=== PATIENT | male | born 1985 | race Hispanic/Latino ===

== ENCOUNTER 2022-10-04 18:45 | Emergency (ER) | payer SELFPAY ==
[2022-10-04 19:15] VITALS: BP 136/91
[2022-10-04 19:30] VITALS: BP 129/86
[2022-10-04 19:58] LABS: HEMOGLOBIN 14.5 g/dl (14.0-18.0); IMMATURE GRANULOCYTES 0.1 % (0.0-5.0); MEAN CELL VOLUME 81.9 fL CALC (80.0-100.0); MEAN CORPUSCULAR HGB 28.3 pG CALC (26.0-32.0); MEAN CORPUSCULAR HGB CONC 34.5 g/dL CAL (32.0-36.0); NEUT# 5.36 thou/uL (1.82-7.42); RED BLOOD COUNT 5.13 mill/uL (4.70-6.10); RED CELL DISTRI WIDTH 15.2 % (11.5-15.5)
[2022-10-04 20:13] LABS: ALBUMIN 4.3 g/dL (3.2-5.0); ALKALINE PHOSPHATASE 103 u/l (38-126); ANION GAP 11 (6-22 (CALC)); BILIRUBIN, TOTAL 0.5 mg/dL (0.0-1.4); BUN 16 mg/dL (9-20); BUN/CREATININE RATIO 20 (12-20 (CALC)); CARBON DIOXIDE 26 mmol/l (22-30); CHLORIDE 108 mmol/l (95-108); CREATININE 0.8 mg/dL (0.7-1.3); GFR FOR AFR.AMER. > 60 ML/MIN (>=60 (CALC)); GFR OTHER RACES > 60 ML/MIN (>=60 (CALC)); POTASSIUM 3.7 mmol/l (3.5-5.1); SGOT/AST 41 u/l (17-59); SODIUM 142 mmol/l (137-146)
[2022-10-04 20:37] LABS: URINE BILIRUBIN - DIPSTICK NEGATIVE (NEGATIVE); URINE BLOOD DIPSTICK NEGATIVE (NEGATIVE); URINE COLOR YELLOW; URINE GLUCOSE - DIPSTICK NEGATIVE (NEGATIVE); URINE KETONE NEGATIVE (NEGATIVE); URINE LEUK ESTERASE NEGATIVE (NEGATIVE); URINE NITRITE - DIPSTICK NEGATIVE (Negative); URINE PROTEIN - DIPSTICK NEGATIVE (NEG-TRACE); URINE SPECIFIC GRAVITY 1.025
[2022-10-04 21:36] VITALS: BP 104/71
[2022-10-04] MEDS ORDERED: CYCLOBENZAPRINE10 MG PO (21:55)
[2022-10-04] MEDS ORDERED: CIPROFLOXACN500 MG PO (21:55)
[2022-10-04] MEDS ORDERED: NAPROXEN500 MG PO (21:55)
[2022-10-04 22:00] VITALS: BP 128/73
[2022-10-04 22:15] VITALS: BP 128/73
== END 2022-10-04 22:25 | disposition home or self-care (01) | DRG 552 ==
LOC: ED 18:45
PROVIDERS: Emergency Medicine
DX: M54.50 Low back pain, unspecified (principal)
CPT/HCPCS: Q9967

== ENCOUNTER 2023-04-20 11:31 | Observation (INO) | payer OTHER ==
[~2023-04-20] VITALS: Ht 177.8 cm; Wt 86.2 kg
[~2023-04-20 11:31] MED LIST: CIPROFLOXACN500 MG PO; CYCLOBENZAPRINE10 MG PO; NAPROXEN500 MG PO
[2023-04-20] MEDS ORDERED: SUBOXONE1 MI1 SL ×2 (11:54→18:55)
--- NOTE | 2023-04-20 11:55 | NUR ---
PT AMBULATED TO ROOM 1 W/O DIFFICULTY, CALL LIGHT IN REACH, PROVIDER NOTIFIED.
--- NOTE | 2023-04-20 12:30 | NUR ---
PT SITTING UN IN BED C/O LT MIDDLE FINGER SWOLLEN, UNSURE OF WHAT CAUSED IT, PAIN 5/10; ABLE TO MOVE FINGER BUT CANNOT BEND IT; ORIENT TO ROOM AND CALL HUIZAR.
[2023-04-20 12:41] LABS: BASO% 0.3 % (0-3); HEMATOCRIT 43.6 % (39.0-50.0); IMMATURE GRANULOCYTES 0.1 % (0.0-5.0); LYMPH% 14.8 % (15-41); MEAN CELL VOLUME 85.3 fL CALC (80.0-100.0); MEAN CORPUSCULAR HGB 29.4 pG CALC (26.0-32.0); MEAN CORPUSCULAR HGB CONC 34.4 g/dL CAL (32.0-36.0); MONO% 8.2 % (2-13); NEUT# 10.18 thou/uL (1.82-7.42); NEUT% 75.6 % (42-76); RED BLOOD COUNT 5.11 mill/uL (4.70-6.10); RED CELL DISTRI WIDTH 12.5 % (11.5-15.5)
[2023-04-20 12:57] LABS: ALBUMIN 4.5 g/dL (3.2-5.0); ALKALINE PHOSPHATASE 137 u/l (38-126); ANION GAP 16 (6-22 (CALC)); BILIRUBIN, TOTAL 0.8 mg/dL (0.2-1.3); BUN 17 mg/dL (9-20); BUN/CREATININE RATIO 21 (12-20 (CALC)); CARBON DIOXIDE 27 mmol/l (22-30); CHLORIDE 102 mmol/l (95-108); CREATININE 0.8 mg/dL (0.7-1.3); GFR FOR AFR.AMER. > 60 ML/MIN (>=60 (CALC)); GFR OTHER RACES > 60 ML/MIN (>=60 (CALC)); POTASSIUM 3.6 mmol/l (3.5-5.1); SGOT/AST 44 u/l (17-59); SODIUM 141 mmol/l (137-146); TOTAL PROTEIN 8.2 g/dL (6.3-8.2)
--- NOTE | 2023-04-20 13:19 | NUR ---
REASSESSMENT OF PT, REQ SOME CRACKERS WHICH WAS GIVEN.
--- NOTE | 2023-04-20 13:45 | NUR ---
MEDICATED PER EMAR.
--- NOTE | 2023-04-20 15:00 | NUR ---
REASSESSMENT OF PT, DENIES ANY NEEDS AT THIS TIME.
--- NOTE | 2023-04-20 16:20 | NUR ---
MEDICATED PER EMAR, C/O OF PAIN 06/03, PROVIDER AWARE.
--- NOTE | 2023-04-20 16:31 | NUR ---
PT SITTING UP IN BED USING HIS PHONE; MEDICATED FOR PAIN; PT EDUCATED ON NPO; CALL HUIZAR IN REACH.
--- NOTE | 2023-04-20 17:36 | NUR ---
PT VOIDED CLEAR TEDDY URINE IN URINAL.
--- NOTE | 2023-04-20 18:58 | NUR ---
@1730 B/P 129/87, HR 68 02 999% @1800 B/P 134/78, HR 67 02 99% @1700 B/P 150/74, HR 81, 02 99% RESP 18
--- NOTE | 2023-04-20 19:19 | NUR ---
@1800 B/P134/78 HR 67, 02 99% RESP 18 @1900 B/P150/74 HR 81 02 99% RESP 18
--- NOTE | 2023-04-20 19:25 | NUR ---
REPORT GIVEN TO EARL/FILEMON
--- NOTE | 2023-04-20 19:35 | NUR ---
PT TAKEN TO [facility] VIA W/C IN STABLE CONDITION, ALL BELONGINGS SENT WITH PT.
[2023-04-20 19:40] VITALS: BP 135/78
[2023-04-21] VITALS (7 sets, daily range): BP systolic 114–137; BP diastolic 70–91
--- NOTE | 2023-04-21 07:26 | NUR ---
PATIENT IS ADMITTED TO THIS FLOOR DUE TO ABCESS TO LEFT MIDDLE FINGER, FINGER IS SWOLLEN, WITH PURULENT DRAINAGE. PICTURE WAS TAKEN OF WOUND BUT WAS UNABLE TO PRINT. PATIENT IS ALERT AND ORIENTED X3. MEDICATED WITH TORADOL 2X THIS SHIFT. PATIENT HAS HISTORY OF OSTEOMYLITIS OF BONE. PATIENT IS AN IV DRUG USER, TESTED POSITIVE FOR METH, COCAINE AND THC, HAS VISIBLE TRACK JENKINS TO HAND. PATIENT STATED THAT HE HAS BEEN CLEAN FROM HEROINE SINCE [id number]. PATIENT IS CURRENTLY RESTING IN BED WITH EYES CLOSED, CALL LIGHT WITHIN REACH, WILL CONTINUE TO MONITOR.
--- NOTE | 2023-04-21 08:00 | NUR ---
PT IN BED WITH HOB UP, ALERT AND OREINTED X 3. PT C/O PAIN IN LEFT, MIDDLE FINGER, WILL MEDICATE WITH PRN MEDICATION ORDERED. PT HAS TELE ON WITH ALL LEADS ATTACHED. IV SITE TO LAC CLEAN AND INTACT. PT AMBULATES WELL TO BATHROOM FOR TOILETING. LEFT, MIDDLE FINGER RED AND SWOLLEN. PT HAS CALL LIGHT WITHIN REACH AND ALL SAFETY MEASURES IN PLACE AT THIS TIME.
--- NOTE | 2023-04-21 11:50 | NUR ---
S: COREEN MATIAS JR is a 37 M who presents with Sepsis and Cellulits. He has a history of low back pain and osteomyelitis of the bone. All medications in patient's chart were reviewed. O: VS: BP 114/72mmHg, P 59bpm, RR 16bpm,T 97.7F W 86.2kg, HT 70inches, Scr= 0.8mg/dL,CrCl= 154.1ml/min A: Blood culture is pending. Preliminary wound culture shows gram positive cocci. P: Patient is on Zosyn 3.375g IV Q6H. Vancomycin ordered for pharmacy to dose. Start Vancomycin 1g IV Q8H. Vancomycin trough is drawn before the 4th dose on 04/22 @ 0930. Vancomycin goal trough is between 15-20 mcg/ml. Pharmacy will follow and or advise on antibiotics use as needed.
--- NOTE | 2023-04-21 12:00 | NUR ---
PT IN BED WITH HOB EATING LUNCH. PT IS ALERT AND ORIENTED X3. NO CHANGE IN STATUS AT THIS TIME. PT HAS HAS CALL LIGHT WITHIN REACH.
--- NOTE | 2023-04-21 16:49 | NUR ---
PT C/O PAIN @ 9/10 IN INFECTED FINGER, TORADOL GIVEN. FINGER IS DRAINING MODERATE AMOUNT OF SEROSANG FLUID. 4X4 LOOSELY LAID ON FINGER TO CATCH ANY FURTHER DRAINAGE. WARM COMPRESS APPLED FOR COMFORT. WILL CONTINUE TO MONITOR. PT HAS CALL LIGHT WITHIN REACH.
--- NOTE | 2023-04-21 20:00 | NUR ---
RECEIVED REPORT FROM NURSE JIMI, PATIENT ALERT ORIENTED X 4 ABLE TO MAKE NEEDS KNONW, SALINE LOCK NOTED ON LAC PATENT FLUSHES WELL ASSESSMENT COMPLETED, PATIENT STATED HISTORY OF MRSA COUPLE OF MONTH AGO WOUND ON RT FINGER, MRSA SURVEILLANCE ORDERED PER HOSPITAL PROTOCOL, PATIENT NOT IN DISTRESS, DENIES PAIN AT THIS TIME, PATIENT EDUCATED NPO AFTER MIDNIGHT, EDEMA AND SCANT AMOUNT OF DRAINAGE NOTED ON LEFT MIDDLE FINGER, CALL LIGHT IN REACH.
[2023-04-22] VITALS (14 sets, daily range): BP systolic 112–153; BP diastolic 50–85
--- NOTE | 2023-04-22 | NUR ---
FOOD AND FLUIDS REMOVED FROM BEDSIDE, REINFORCED ON NPO STATUS, PATIENT VERBALIZED UNDERSTANDING, CALL LIGHT IN REACH.
--- NOTE | 2023-04-22 03:55 | NUR ---
PATIENT RESTING IN BED, EYES CLOSED, BREATHING EVEN UNLABORED ONGOING VANCO AT THIS TIME, CALL LIGHT IN REACH, PATIENT MAINTAINED NPO.
[2023-04-22 05:32] LABS: HEMATOCRIT 40.2 % (39.0-50.0); HEMOGLOBIN 13.6 g/dl (14.0-18.0); MEAN CELL VOLUME 86.6 fL CALC (80.0-100.0); MEAN CORPUSCULAR HGB 29.3 pG CALC (26.0-32.0); MEAN CORPUSCULAR HGB CONC 33.8 g/dL CAL (32.0-36.0); RED BLOOD COUNT 4.64 mill/uL (4.70-6.10); RED CELL DISTRI WIDTH 12.7 % (11.5-15.5)
[2023-04-22 05:59] LABS: ALBUMIN 3.6 g/dL (3.2-5.0); ALKALINE PHOSPHATASE 131 u/l (38-126); ANION GAP 14 (6-22 (CALC)); BILIRUBIN, TOTAL 0.5 mg/dL (0.2-1.3); BUN 13 mg/dL (9-20); BUN/CREATININE RATIO 18 (12-20 (CALC)); CARBON DIOXIDE 24 mmol/l (22-30); CHLORIDE 107 mmol/l (95-108); CREATININE 0.7 mg/dL (0.7-1.3); GFR FOR AFR.AMER. > 60 ML/MIN (>=60 (CALC)); GFR OTHER RACES > 60 ML/MIN (>=60 (CALC)); POTASSIUM 4.2 mmol/l (3.5-5.1); SGOT/AST 32 u/l (17-59); SODIUM 140 mmol/l (137-146); TOTAL PROTEIN 6.9 g/dL (6.3-8.2)
--- NOTE | 2023-04-22 07:00 | NUR ---
RECIEVED BEDSIDE REPORT, PATIENT APPEARS SLEEPING, NO S/S OF DISTRESS, PATIENT NPO SINCE MIDNIGHT FOR POSSIBLE I&D TODAY. PATIENT SAFETY MEASURES IN PLACE.
--- NOTE | 2023-04-22 11:11 | NUR ---
S: COREEN MATIAS JR is a 37 M who presents with cellulitis. All medications in patient's chart were reviewed. O: VS: BP 135/85, P 54 bpm, RR 20 bpm,T 98.4 F W 86.2kg, HT 70inches, Scr=0.7 ,CrCl= 176.2 ml/min A: Blood culture is pending. Wound culture of right middle finger shows MRSA growth with vancomycin susceptibility. P: Vancomycin ordered for pharmacy to dose. Continue Vancomycin 1g IV Q8H. Vancomycin trough to be drawn again on 04/23 @ 0930. Vancomycin trough drawn on 04/22 @ 0947: 10 ug/mL Vancomycin goal trough is between 10-15 mcg/ml. Pharmacy will follow and or advise on antibiotics use as needed.
--- NOTE | 2023-04-22 12:00 | NUR ---
PATIENT PREPED FOR PROCEDURE, CONSENT SIGNED, NO S/S OF DISTRESS, EKG DONE, SINUS CHUY. PATIENT SAFETY MEASURES IN PLACE.
--- NOTE | 2023-04-22 12:34 | NUR ---
PATIENT WENT TO OR FOR I&D. LEFT FLOOR IN STABLE CONDITION.
--- NOTE | 2023-04-22 14:43 | NUR ---
PATIENT ARRIVED BACK TO THE UNIT IN STABLE CONDITION, LEFT HAND WRAPPED , DRESSING ORDERS RECIEVED, PATIENT REFUSED PERCOCET, ORDER RECIEVED FOR TORADOL, PATIENT SAFTEY MEASURES IN PLACE.
--- NOTE | 2023-04-22 20:00 | NUR ---
RECEIVED REPORT FROM NURSE DOMINIC, PATIENT RESTING IN BED, WATCHING TV, S/P I&d TODAY DRESSING ON LEFT HAND CDI, IV ON LEFT ARM PATENT CURRENTLY VANCO INFUSING, ON TELEMETRY, PATINT ORDER FOR DRESSING CHANGED TO START TONIGHT, WILL PREMEDICATE PRIOR, CALL LIGHT IN REACH.
--- NOTE | 2023-04-22 21:00 | NUR ---
PATIENT PREMEDICATED WITH IV DILAUDID, DRESSING REMOVED SOAKED WITH SALINE, PATIENT MEDICATED AGAIN WITH PRN PERCOCET, UNABLE TO TOLERATE PAIN FROM REMOVAL OF PACKING PERCOCET GIVEN.APACKING SOAKED NORMAL SALINE WELL, PATIENT REFUSED, TO PACKED WOUND AT THIS TIME, WILL DO IT TOMORROW DRESSING CHANGED, SLIGHT PACKING DONE, AND WET TO DRY. COVERED WITH KERLIX AND WRAP WITH CORY, HAND ELEVATED. .
--- NOTE | 2023-04-23 00:14 | NUR ---
DUE TORADOL GIVEN AT THIS TIME, NOT IN DISTRESS, DRESSING CDI.
[2023-04-23 00:27] VITALS: BP 116/61
[2023-04-23 03:56] VITALS: BP 108/54
[2023-04-23 04:30] VITALS: BP 108/54
--- NOTE | 2023-04-23 04:38 | NUR ---
PATIENT RESTING IN BED, REMAINS ON ISOLATION FOR MRSA ON THE WOUND, NOT IN DISTRESS, CALL LIGHT IN REACH.
[2023-04-23 05:10] LABS: BASO% 0.5 % (0-3); EOS% 4.1 % (0-8); HEMATOCRIT 41.3 % (39.0-50.0); HEMOGLOBIN 13.8 g/dl (14.0-18.0); LYMPH% 36.6 % (15-41); MEAN CELL VOLUME 86.9 fL CALC (80.0-100.0); MEAN CORPUSCULAR HGB 29.1 pG CALC (26.0-32.0); MEAN CORPUSCULAR HGB CONC 33.4 g/dL CAL (32.0-36.0); MONO% 11.7 % (2-13); NEUT# 3.79 thou/uL (1.82-7.42); NEUT% 47.1 % (42-76); RED BLOOD COUNT 4.75 mill/uL (4.70-6.10); RED CELL DISTRI WIDTH 12.6 % (11.5-15.5)
[2023-04-23 05:35] LABS: ANION GAP 11 (6-22 (CALC)); BUN 17 mg/dL (9-20); BUN/CREATININE RATIO 21 (12-20 (CALC)); CARBON DIOXIDE 27 mmol/l (22-30); CHLORIDE 107 mmol/l (95-108); CREATININE 0.8 mg/dL (0.7-1.3); GFR FOR AFR.AMER. > 60 ML/MIN (>=60 (CALC)); GFR OTHER RACES > 60 ML/MIN (>=60 (CALC)); MAGNESIUM 2.1 mg/dL (1.6-2.3); POTASSIUM 4.4 mmol/l (3.5-5.1); SODIUM 141 mmol/l (137-146)
--- NOTE | 2023-04-23 05:37 | NUR ---
temp repeated, fan is facing patient face. recorded 97.5.
[2023-04-23 07:53] VITALS: BP 117/72
--- NOTE | 2023-04-23 08:00 | NUR ---
PT IN BED WITH HOB, ALERT AND ORIENTED X3; PT HAS MILD PAIN AT THIS TIME AT 2/10 ON PAIN SCALE.IV SITE #20 TO LFA CLEAN AND INTACT, SL. TELE IN WITH ALL LEADS ATTACHED. DRESSING TO LEFT MIDDLED FINGER CLEAN AND INTACT. PT HAS URINAL AT BEDSIDE FOR TOILETING NEEDS. PT HAS CALL LIGHT WIHTIN REACH AND ALL SAFETY MEASURES IN PLACE AT THIS TIME.
[2023-04-23] MEDS ORDERED: DOXYCYCLINE100 MG PO (10:35)
[2023-04-23 11:47] VITALS: BP 113/59
--- NOTE | 2023-04-23 12:00 | NUR ---
PT IN BED EATING BREAKFAST, ALERT ORIENTED X3. PT HAS NO CHANGE IN STATUS AT THIS TIME. DRESSING TO LEFT, MIDDLE FINGER CLEAN AND DRY. PT HAS CALL LIGHT WITHIN REACH AND ALL SAFETY MEASURES IN PLACE.
--- NOTE | 2023-04-23 13:42 | NUR ---
Discharge instructions given. Patient verbalizes understanding of same. Discharged in stable condition via Wheelchair to Home with volunteer. All belongings sent with pt.
== END 2023-04-23 13:42 | disposition home or self-care (01) | DRG 603 ==
LOC: ED 11:31 → ED-I 15:53 → ED 17:47 → MS2 17:48
PROVIDERS: Internal Medicine; Nurse Practitioner Family; ADMIT Internal Medicine; ATTEND Internal Medicine
PROC: 0H9GXZZ Drainage of Left Hand Skin, External Approach (ICD-10-PCS; principal; 2023-04-22)
DX: L02.511 Cutaneous abscess of right hand (principal); L03.012 Cellulitis of left finger; B95.62 Methicillin resistant Staphylococcus aureus infection as the cause of diseases classified elsewhere; B19.20 Unspecified viral hepatitis C without hepatic coma; F15.10 Other stimulant abuse, uncomplicated; F14.10 Cocaine abuse, uncomplicated; F17.200 Nicotine dependence, unspecified, uncomplicated; Z86.19 Personal history of other infectious and parasitic diseases
CPT/HCPCS: G0378; J0131; J1650; J2020